=== PATIENT | female | born 1980 | race Caucasian/White ===

== ENCOUNTER 2016-11-08 16:39 | Emergency (ER) | payer BC ==
[2016-11-08] MEDS ORDERED: OXYCODONE-ACETAMINOPHEN 5-325 MG TABLET PO ONE (19:10)
--- NOTE | 2016-11-08 19:13 | ER Document Report ---
ED Medical Screen (RME) - General Chief Complaint: Diarrhea Stated Complaint: FLU SYMPTOMS Mode of Arrival: Ambulatory Information source: Patient TRAVEL OUTSIDE OF THE [place] IN LAST 30 DAYS: No - HPI Onset: This morning Onset/Duration: Sudden Quality of pain: Cramping Severity: Moderate Associated Symptoms: Diarrhea - x 10 or more Exacerbated by: Denies Relieved by: Denies, Other - no better w/ imodium, pepto - Related Data Smoking: Non-smoker Frequency of alcohol use: None Drug Abuse: None Allergies/Adverse Reactions: codeine Allergy (Mild, Verified 11/08/16 17:16) Pruritis Past Medical History - General Information source: Patient - Social History Cigarette use (# per day): No Chew tobacco use (# tins/day): No Frequency of alcohol use: None Drug Abuse: None Lives with: Spouse/Significant other Family history: Reviewed & Not Pertinent - Past Medical History Cardiac Medical History: Reports: None Pulmonary Medical History: Reports: None Endocrine Medical History: Reports: None Renal/ Medical History: Reports: None. Denies: Hx Peritoneal Dialysis GI Medical History: Reports: Hx Irritable Bowel Past Surgical History: Reports: Hx Section - 2 months ago - Immunizations Hx Diphtheria, Pertussis, Tetanus Vaccination: Yes Review of Systems - Review of Systems Constitutional: Chills EENT: No symptoms reported Cardiovascular: No symptoms reported Respiratory: No symptoms reported Gastrointestinal: See HPI Genitourinary: No symptoms reported Female Genitourinary: No symptoms reported. denies: Physical Exam - Vital signs Vitals: Temp Pulse Resp BP Pulse Ox 99.7 F 114 H 20 129/58 H 99 11/08/16 17:19 11/08/16 17:19 11/08/16 17:19 11/08/16 17:19 11/08/16 17:19 Interpretation: Tachycardic. No: Hypotensive, Tachypneic, Febrile Course - Vital Signs Vital signs: Temp Pulse Resp BP Pulse Ox 99.7 F 114 H 20 129/58 H 99 11/08/16 17:19 11/08/16 17:19 11/08/16 17:19 11/08/16 17:19 11/08/16 17:19
[2016-11-08 19:48] LABS: HEMATOCRIT 39.5 % (36.0-47.0); HEMOGLOBIN 13.6 g/dL (12.0-15.5); HGB HCT DIFFERENCE 1.3; MEAN CORPUSCULAR HGB CONC 34.4 g/dL (32.0-36.0); MEAN CORPUSCULAR VOLUME 90 fl (80-97); RED BLOOD COUNT 4.38 10^6/uL (3.72-5.28); RED CELL DISTRIBUTION WIDTH 12.7 % (11.5-14.0); WHITE BLOOD COUNT 10.2 10^3/uL (4.0-10.5)
[2016-11-08 19:54] LABS: APPEARANCE,URINE CLEAR; BILIRUBIN,URINE NEGATIVE (NEGATIVE); GLUCOSE, URINE NEGATIVE (NEGATIVE); KETONES,URINE 20 mg/dL (NEGATIVE); LEUKOCYTE ESTERASE,URINE TRACE (NEGATIVE); NITRITE,URINE NEGATIVE (NEGATIVE); PROTEIN,URINE NEGATIVE (NEGATIVE); URINE SPECIFIC GRAVITY 1.016; UROBILINOGEN,URINE NEGATIVE mg/dL (<2.0)
[2016-11-08 20:06] LABS: ALANINE AMINOTRANSFERASE 26 U/L (9-52); ALBUMIN 4.5 g/dL (3.5-5.0); ALKALINE PHOSPHATASE 70 U/L (38-126); ANION GAP 16 (5-19); ASPARTATE AMINO TRANSFERASE 26 U/L (14-36); BILIRUBIN,DIRECT 0.2 mg/dL (0.0-0.4); BILIRUBIN,TOTAL 0.4 mg/dL (0.2-1.3); BLOOD UREA NITROGEN 12 mg/dL (7-20); CALCIUM 9.6 mg/dL (8.4-10.2); CARBON DIOXIDE 24 mmol/L (22-30); CHLORIDE 102 mmol/L (98-107); GLUCOSE 96 mg/dL (75-110); POTASSIUM 4.5 mmol/L (3.6-5.0); SODIUM 142.2 mmol/L (137-145); TOTAL PROTEIN 7.9 g/dL (6.3-8.2)
[2016-11-08 20:15] LABS: BASOPHILS % (MANUAL) 0 % (0-2); EOSINOPHILS % (MANUAL) 0 % (0-6); LYMPHOCYTES % (MANUAL) 5 % (13-45); TOTAL CELLS COUNTED 100
[2016-11-08 20:16] LABS: TOXIC GRANULATION SLIGHT
[2016-11-08] MEDS ORDERED: FAMOTIDINE INJ/PF 20 MG/2 ML SDV IV ONE (20:36)
[2016-11-08] MEDS ORDERED: NORMAL SALINE 1000 ML 1,000 ML IV PRN (20:36)
[2016-11-08] MEDS ORDERED: ONDANSETRON HCL INJ/PF 4 MG/2 ML SDV IV ONE (20:36)
--- NOTE | 2016-11-08 20:37 | ER Document Report ---
ED GI/ - General Chief Complaint: Diarrhea Stated Complaint: FLU SYMPTOMS Time seen by provider: 20:37 Mode of Arrival: Ambulatory Information source: Patient TRAVEL OUTSIDE OF THE [place] IN LAST 30 DAYS: No - HPI Patient complains to provider of: Abdominal pain, Diarrhea Onset: This morning Timing/Duration: Gradual, Persistent Quality of pain: Achy, Cramping Severity at maximum: Moderate Severity in ED: Moderate Pain Level: 3 Location: Other - Diffuse Associated symptoms: Chills, Diarrhea, Fever, Nausea Exacerbated by: Denies Relieved by: Denies Similar symptoms previously: No Recently seen / treated by doctor: No Notes: 11/09/16 01:10 Patient is a 36-year-old female presenting to the emergency room complaining of nausea, diarrhea, fever and chills, symptoms started this morning, she denies any dysuria or hematuria, no sick contacts, no vomiting, she reports diffuse crampy abdominal pain - Related Data Allergies/Adverse Reactions: codeine Allergy (Mild, Verified 11/08/16 17:16) Pruritis Past Medical History - General Information source: Patient - Social History Smoking Status: Never Smoker Cigarette use (# per day): No Chew tobacco use (# tins/day): No Frequency of alcohol use: None Drug Abuse: None Lives with: Spouse/Significant other Family History: Other - GB Patient has suicidal ideation: No Patient has homicidal ideation: No - Past Medical History Cardiac Medical History: Reports: None Pulmonary Medical History: Reports: None Endocrine Medical History: Reports: None Renal/ Medical History: Reports: None. Denies: Hx Peritoneal Dialysis GI Medical History: Reports: Hx Irritable Bowel Past Surgical History: Reports: Hx Section - 2 months ago - Immunizations Hx Diphtheria, Pertussis, Tetanus Vaccination: Yes Review of Systems - Review of Systems Constitutional: See HPI EENT: No symptoms reported Cardiovascular: No symptoms reported Respiratory: No symptoms reported Gastrointestinal: See HPI Genitourinary: No symptoms reported Female Genitourinary: No symptoms reported Musculoskeletal: No symptoms reported Skin: No symptoms reported Hematologic/Lymphatic: No symptoms reported Neurological/Psychological: No symptoms reported -: Yes All other systems reviewed and negative Physical Exam - Vital signs Vitals: Temp Pulse Resp BP Pulse Ox 99.7 F 114 H 20 129/58 H 99 11/08/16 17:19 11/08/16 17:19 11/08/16 17:19 11/08/16 17:19 11/08/16 17:19 Interpretation: Tachycardic - General General appearance: Appears well, Alert - HEENT Head: Normocephalic, Atraumatic Eyes: Normal Pupils: PERRL - Respiratory Respiratory status: No respiratory distress Chest status: Nontender Breath sounds: Normal Chest palpation: Normal - Cardiovascular Rhythm: Regular Heart sounds: Normal auscultation Murmur: No - Abdominal Inspection: Normal Distension: No distension Bowel sounds: Normal Tenderness: Tender - Mild diffuse Organomegaly: No organomegaly - Back Back: Normal, Nontender - Extremities General upper extremity: Normal inspection, Nontender, Normal color, Normal ROM , Normal temperature General lower extremity: Normal inspection, Nontender, Normal color, Normal ROM , Normal temperature, Normal weight bearing. No: Alley's sign - Neurological Neuro grossly intact: Yes Cognition: Normal Orientation: AAOx4 Floyd Coma Scale Eye Opening: Spontaneous [place] Coma Scale Verbal: Oriented Floyd Coma Scale Motor: Obeys Commands Floyd Coma Scale Total: 15 Speech: Normal Motor strength normal: LUE, RUE, LLE, RLE Sensory: Normal - Psychological Associated symptoms: Normal affect, Normal mood - Skin Skin Temperature: Warm Skin Moisture: Dry Skin Color: Normal Course - Re-evaluation Re-evalutation: 11/09/16 00:19 Patient resting comfortably, reports feeling much better and ready to go home, lab and imaging findings were discussed with patient at bedside which are relatively unremarkable, patient was discharged with a Zofran dose pack and instructions for follow-up, advised to return if symptoms worsen, patient acknowledges understanding and agreement with this plan - Vital Signs Vital signs: Temp Pulse Resp BP Pulse Ox 98 F 101 H 16 101/60 98 11/08/16 23:22 11/08/16 23:22 11/08/16 23:22 11/08/16 23:22 11/08/16 23:22 - Laboratory Result Diagrams: 11/08/16 19:20 11/08/16 19:20 Laboratory results interpreted by me: 11/08/16 11/08/16 17:20 19:20 Seg Neuts % (Manual) 90 H Lymphocytes % (Manual) 5 L Abs Neuts (Manual) 9.2 H Urine Ketones 20 H Ur Leukocyte Esterase TRACE H Urine Ascorbic Acid 20 H - Diagnostic Test Radiology reviewed: Image reviewed, Reports reviewed Discharge - Discharge Clinical Impression: Nausea and vomiting Qualifiers: Vomiting type: unspecified Vomiting Intractability: non-intractable Qualified Code(s): R11.2 - Nausea with vomiting, unspecified Condition: Stable Disposition: HOME, SELF-CARE Instructions: Antinausea Medication ([facility]), Vomiting ([facility]), Intravenous (IV) Fluids ([facility]) Additional Instructions: Follow up with your primary care provider in one to 2 days. Return to the emergency room immediately if symptoms worsen or any additional concerns. Forms: Return to Work Referrals: ONELIA MANZANO FNP [Primary Care Provider] - Follow up as needed
[2016-11-09] MEDS ORDERED: ONDANSETRON ODT 4 MG TAB (6 TAB/DSPK) PO PRN (00:19)
[2016-11-09] MEDS ORDERED: HYDROCODONE/ACETAMINOPHEN 5-325 MG 6 TAB/DSPK PO PRN (00:19)
[2016-11-09 01:29] VITALS: BP 122/89
== END 2016-11-09 00:25 | disposition home or self-care (01) ==
LOC: ER 16:39
DX: R11.2 Nausea with vomiting, unspecified (principal); R19.7 Diarrhea, unspecified; R50.9 Fever, unspecified; R10.84 Generalized abdominal pain; Z88.5 Allergy status to narcotic agent; R00.0 Tachycardia, unspecified
CPT/HCPCS: 99284; 96361; 96374; 96375; 36415; 85025; 80053; 81001; 74022; 74177; J2405; J7030; S0028

== ENCOUNTER 2019-05-04 22:51 | Emergency (ER) | payer BC ==
[2019-05-04 23:11] VITALS: BP 109/73
--- NOTE | 2019-05-05 | ER Document Report ---
ED Medical Screen (RME) - General Chief Complaint: Pain All Over Stated Complaint: BODY ACHES,WEAKENESS,HEAVINESS IN LEGS Time Seen by Provider: 05/04/19 23:54 Primary Care Provider: ONELIA MANZANO FNP [Primary Care Provider] - Follow up as needed Notes: Patient is a 39-year-old female presents to the emergency department for multiple complaints. Patient voices she "just does not feel right." States she started with generalized heaviness in both of her legs. She denies any calf pain. Now states she just feels very jittery. States she feels as though she is breathing fast. Denies any history of anxiety or depression. Patient just keeps voicing over and over again "I know there is something wrong." GENERAL: Alert, interacts well. Intermittently shaking bilateral upper extremities. Stops on command. HEART: Tachycardic rate and rhythm. No murmur ABDOMEN: Soft, non-tender. Non-distended. Bowel sounds present in all 4 quadrants. I have greeted and performed a rapid initial assessment of this patient. A comprehensive ED assessment and evaluation of the patient, analysis of test results and completion of the medical decision making process will be conducted by additional ED providers. I have specifically instructed the patient or family members with the patient to immediately return to any nursing staff should anything change in the patient's condition or with their chief complaint. This medical record was dictated with voice recognizing software. There may be grammatical, syntax errors that are unintended. TRAVEL OUTSIDE OF THE [place] IN LAST 30 DAYS: No - Related Data Allergies/Adverse Reactions: codeine Allergy (Mild, Verified 05/04/19 23:58) Pruritis erythromycin base Allergy (Verified 05/04/19 23:58) Past Medical History - Social History Family history: Reviewed & Not Pertinent Renal/ Medical History: Denies: Hx Peritoneal Dialysis GI Medical History: Reports: Hx Irritable Bowel Past Surgical History: Reports: Hx Section - 2 months ago, Hx Cho lecystectomy - Immunizations Hx Diphtheria, Pertussis, Tetanus Vaccination: Yes Physical Exam - Vital signs Vitals: Temp Pulse Resp BP Pulse Ox 98.7 F 104 H 16 109/73 100 05/04/19 23:10 05/04/19 23:10 05/04/19 23:10 05/04/19 23:10 05/04/19 23:10 Course - Vital Signs Vital signs: Temp Pulse Resp BP Pulse Ox 98.7 F 104 H 16 109/73 100 05/04/19 23:10 05/04/19 23:10 05/04/19 23:10 05/04/19 23:10 05/04/19 23:10 Doctor's Discharge - Discharge Referrals: ONELIA MANZANO FNP [Primary Care Provider] - Follow up as needed
[2019-05-05 00:34] LABS: APPEARANCE,URINE CLEAR; BILIRUBIN,URINE NEGATIVE (NEGATIVE); COLOR,URINE STRAW; GLUCOSE, URINE NEGATIVE (NEGATIVE); KETONES,URINE NEGATIVE (NEGATIVE); LEUKOCYTE ESTERASE,URINE TRACE (NEGATIVE); NITRITE,URINE NEGATIVE (NEGATIVE); PROTEIN,URINE NEGATIVE (NEGATIVE); URINE SPECIFIC GRAVITY 1.005; UROBILINOGEN,URINE NEGATIVE mg/dL (<2.0)
[2019-05-05 00:40] LABS: ABSOLUTE LYMPHOCYTES (AUTO) 1.7 10^3/uL (0.5-4.7); ABSOLUTE NEUT (AUTO) 7.4 10^3/uL (1.7-8.2); BASOPHILS % (AUTO) 0.3 % (0-2); EOSINOPHILS % (AUTO) 0.2 % (0-6); HEMATOCRIT 37.6 % (36.0-47.0); LYMPHOCYTES % (AUTO) 16.9 % (13-45); MEAN CORPUSCULAR HGB CONC 34.5 g/dL (32.0-36.0); MEAN CORPUSCULAR VOLUME 93 fl (80-97); MONOCYTES % (AUTO) 9.5 % (3-13); PLATELET COUNT 207 10^3/uL (150-450); RED BLOOD COUNT 4.06 10^6/uL (3.72-5.28); RED CELL DISTRIBUTION WIDTH 12.3 % (11.5-14.0); SEGMENTED NEUTROPHILS % (AUTO) 73.1 % (42-78); TOTAL CELLS COUNTED % (AUTO) 100 %; WHITE BLOOD COUNT 10.1 10^3/uL (4.0-10.5)
[2019-05-05 00:49] LABS: ALBUMIN 4.7 g/dL (3.5-5.0); ALKALINE PHOSPHATASE 61 U/L (38-126); ANION GAP 13 (5-19); ASPARTATE AMINO TRANSFERASE 22 U/L (14-36); BILIRUBIN,DIRECT 0.2 mg/dL (0.0-0.4); BILIRUBIN,TOTAL 0.5 mg/dL (0.2-1.3); BLOOD UREA NITROGEN 15 mg/dL (7-20); CALCIUM 9.7 mg/dL (8.4-10.2); CARBON DIOXIDE 26 mmol/L (22-30); CHLORIDE 101 mmol/L (98-107); GLUCOSE 106 mg/dL (75-110); POTASSIUM 3.9 mmol/L (3.6-5.0); TOTAL PROTEIN 8.1 g/dL (6.3-8.2)
--- NOTE | 2019-05-05 02:19 | ER Document Report ---
ED General - General Chief Complaint: Pain All Over Stated Complaint: BODY ACHES,WEAKENESS,HEAVINESS IN LEGS Time Seen by Provider: 05/04/19 23:54 Primary Care Provider: ONELIA MANZANO FNP [Primary Care Provider] - Follow up as needed Notes: Patient is a 39-year-old female that comes to the emergency department for complaints of generally not feeling right for the past several days. She states it started with cramps, mainly in the left leg, it seemed to be in a calfs at first but now on the thighs, she states she also got extremely shaky and jittery earlier today, she states she did go to her primary care who ran labs and she has the initial results from these with her on her phone. She denies dizziness, chest pain, she states she felt slightly short of breath earlier but not now (she states that she got really anxious earlier and she started breathing rapidly but she did not actually feel like she could not catch her breath). She denies dyspnea on exertion, fever/chills, nausea/vomiting, or swelling the legs. She is not a smoker, she denies hormone use, she denies daily medications. She denies recreational drugs. Has medical history of x2, cholecystectomy, IBS. TRAVEL OUTSIDE OF THE [place] IN LAST 30 DAYS: No - Related Data Allergies/Adverse Reactions: codeine Allergy (Mild, Verified 05/04/19 23:58) Pruritis erythromycin base Allergy (Verified 05/04/19 23:58) Past Medical History - General Information source: Patient - Social History Smoking Status: Never Smoker Frequency of alcohol use: None Drug Abuse: None Lives with: Family Family History: Reviewed & Not Pertinent, Other - GB Patient has suicidal ideation: No Patient has homicidal ideation: No Renal/ Medical History: Denies: Hx Peritoneal Dialysis GI Medical History: Reports: Hx Irritable Bowel Past Surgical History: Reports: Hx Section - 2 months ago, Hx Cholecystectomy - Immunizations Hx Diphtheria, Pertussis, Tetanus Vaccination: Yes Review of Systems - Review of Systems Constitutional: See HPI EENT: No symptoms reported Cardiovascular: See HPI Respiratory: No symptoms reported Gastrointestinal: No symptoms reported Genitourinary: No symptoms reported Female Genitourinary: No symptoms reported Musculoskeletal: See HPI Skin: No symptoms reported Hematologic/Lymphatic: No symptoms reported Neurological/Psychological: No symptoms reported Physical Exam - Vital signs Vitals: Temp Pulse Resp BP Pulse Ox 98.7 F 104 H 16 109/73 100 05/04/19 23:10 05/04/19 23:10 05/04/19 23:10 05/04/19 23:10 05/04/19 23:10 Course - Re-evaluation Re-evalutation: Patient already had a TSH performed by her primary care and this was in normal range, she also had an ESR performed and this was in normal ranges well. CBC unremarkable, chemistry unremarkable, urinalysis unremarkable, test negative. Patient is mildly tachycardic on my exam, I do not appreciate any edema mainly in the left leg or thigh where she states she is having the cramping sensation. I added an EKG from triage work-up but this was unremarkable. D-dimer is negative. Magnesium normal. On reevaluation patient appears to have calmed down and she is no longer tachycardic. Between the current work-up and the work-up with primary care, patient's evaluation, and her reported symptoms, I have very low suspicion of acute etiology including blood clot, infection, or any emergent etiology otherwise. I did discuss results with patient, she is very grateful, states she is ready to be discharged, states she has close follow-up with primary care. Discussed return precautions. Patient states understanding and agreement. - Vital Signs Vital signs: Temp Pulse Resp BP Pulse Ox 98.7 F 104 H 16 109/73 100 05/04/19 23:10 05/04/19 23:10 05/04/19 23:10 05/04/19 23:10 05/04/19 23:10 - Laboratory Result Diagrams: 05/05/19 00:10 05/05/19 00:10 Laboratory results interpreted by me: 05/05/19 00:10 Urine Blood SMALL H Ur Leukocyte Esterase TRACE H Urine Ascorbic Acid 20 H - EKG Interpretation by Me Additional EKG results interpreted by me: EKG shows sinus rhythm at a rate of 94, QTC of 431, MI interval of 124. Normal axis. No T wave inversions or ST segment changes in consecutive leads. Computer reads as normal. Discharge - Discharge Clinical Impression: Shakiness, Generalized weakness Lower extremity pain Qualifiers: Laterality: bilateral Qualified Code(s): M79.604 - Pain in right leg Condition: Stable Disposition: HOME, SELF-CARE Additional Instructions: Your evaluation including EKG, clot testing, general chemistries, and complete blood counts do not show any concerning findings. Your evaluation is reassuring. Symptoms most likely will resolve with time. Follow-up with [facility] for additional evaluation management. Return for any concerning symptoms including swelling of one or both of the legs, difficulty breathing, passing out, or any other concerning symptoms. Referrals: ONELIA MANZANO FNP [Primary Care Provider] - Follow up as needed
--- NOTE | 2019-05-05 08:57 | EKG REPORT ---
SEVERITY:- NORMAL ECG - SINUS RHYTHM : Confirmed by: Ila Curry 05-May-2019 08:55:57
== END 2019-05-05 03:55 | disposition home or self-care (01) ==
LOC: ER 22:51
DX: R53.1 Weakness (principal); M79.10 Myalgia, unspecified site; M79.604 Pain in right leg; R00.0 Tachycardia, unspecified; Z88.3 Allergy status to other anti-infective agents; Z88.6 Allergy status to analgesic agent; Z90.49 Acquired absence of other specified parts of digestive tract
CPT/HCPCS: 36415; 80053; 81001; 81025; 83735; 85025; 85379; 93005; 93010; 99283

== ENCOUNTER 2020-07-12 12:34 | Observation (INO) | payer BC ==
--- NOTE | 2020-07-12 13:10 | ER Document Report ---
ED Medical Screen (RME) - General Chief Complaint: Pelvic Pain Stated Complaint: PELVIC PAIN Time Seen by Provider: 07/12/20 13:04 Primary Care Provider: ONELIA MANZANO FNP [Primary Care Provider] - Follow up as needed Mode of Arrival: Ambulatory Information source: Patient Notes: 40-year-old female presented to ED for complaint of pelvic pain for close to 2 weeks. She states she thought at first it was PMS and then she thought she was getting ready to have her. But she is still not started her menstrual cycle. She states last menstrual cycle was May 31. She states she is taken home is in some of them are inconclusive and some of her negative and some are positive so she does not know what it is. She states she did have intercourse on 14 June and the condom broke and then she took a Plan B 6 hours later so she did not this was why her menstrual cycle was confused. Patient is alert oriented respirations regular nonlabored speaking in full sentences. She states the pelvic pain is worse on her left but she does sometimes have some on the right as well. She states she started with nausea last night no vomiting no diarrhea. Patient states she has IBS so her stomach hurts weird anyway I have greeted and performed a rapid initial assessment of this patient. A comprehensive ED assessment and evaluation of the patient, analysis of test results and completion of medical decision making process will be conducted by an additional ED providers. TRAVEL OUTSIDE OF THE [place] IN LAST 30 DAYS: No - Related Data Allergies/Adverse Reactions: codeine Allergy (Mild, Verified 05/04/19 23:58) Pruritis erythromycin base Allergy (Verified 05/04/19 23:58) Past Medical History - Social History Family history: Reviewed & Not Pertinent Renal/ Medical History: Denies: Hx Peritoneal Dialysis GI Medical History: Reports: Hx Irritable Bowel Past Surgical History: Reports: Hx Section - 2 months ago, Hx Cholecys tectomy - Immunizations Hx Diphtheria, Pertussis, Tetanus Vaccination: Yes Physical Exam - Vital signs Vitals: Temp Pulse Resp BP Pulse Ox 98.3 F 124 H 16 116/74 97 07/12/20 12:38 07/12/20 12:38 07/12/20 12:38 07/12/20 12:38 07/12/20 12:38 Course - Vital Signs Vital signs: Temp Pulse Resp BP Pulse Ox 98.3 F 124 H 16 116/74 97 07/12/20 12:38 07/12/20 12:38 07/12/20 12:38 07/12/20 12:38 07/12/20 12:38 Doctor's Discharge - Discharge Referrals: ONELIA MANZANO FNP [Primary Care Provider] - Follow up as needed
[2020-07-12 13:57] LABS: ABSOLUTE LYMPHOCYTES (AUTO) 1.2 10^3/uL (0.5-4.7); ABSOLUTE NEUT (AUTO) 6.9 10^3/uL (1.7-8.2); BASOPHILS % (AUTO) 0.1 % (0-2); HEMATOCRIT 36.8 % (36.0-47.0); HEMOGLOBIN 12.6 g/dL (12.0-15.5); MEAN CORPUSCULAR HEMOGLOBIN 31.3 pg (27.0-33.4); MEAN CORPUSCULAR HGB CONC 34.3 g/dL (32.0-36.0); MEAN CORPUSCULAR VOLUME 91 fl (80-97); MONOCYTES % (AUTO) 11.2 % (3-13); PLATELET COUNT 226 10^3/uL (150-450); RED BLOOD COUNT 4.03 10^6/uL (3.72-5.28); RED CELL DISTRIBUTION WIDTH 12.3 % (11.5-14.0); SEGMENTED NEUTROPHILS % (AUTO) 75.7 % (42-78); TOTAL CELLS COUNTED % (AUTO) 100 %; WHITE BLOOD COUNT 9.1 10^3/uL (4.0-10.5)
[2020-07-12 14:14] LABS: ALBUMIN 4.7 g/dL (3.5-5.0); ALKALINE PHOSPHATASE 63 U/L (38-126); ANION GAP 10 (5-19); ASPARTATE AMINO TRANSFERASE 27 U/L (14-36); BILIRUBIN,TOTAL 0.4 mg/dL (0.2-1.3); BLOOD UREA NITROGEN 10 mg/dL (7-20); CALCIUM 10.1 mg/dL (8.4-10.2); CARBON DIOXIDE 24 mmol/L (22-30); CHLORIDE 102 mmol/L (98-107); GLUCOSE 96 mg/dL (75-110); POTASSIUM 3.9 mmol/L (3.6-5.0); TOTAL PROTEIN 8.2 g/dL (6.3-8.2)
[2020-07-12 14:40] LABS: APPEARANCE,URINE CLEAR; BILIRUBIN,URINE NEGATIVE (NEGATIVE); COLOR,URINE STRAW; GLUCOSE, URINE NEGATIVE (NEGATIVE); KETONES,URINE TRACE mg/dL (NEGATIVE); LEUKOCYTE ESTERASE,URINE SMALL (NEGATIVE); NITRITE,URINE NEGATIVE (NEGATIVE); PROTEIN,URINE NEGATIVE (NEGATIVE); URINE SPECIFIC GRAVITY 1.005; UROBILINOGEN,URINE NEGATIVE mg/dL (<2.0)
[2020-07-12] MEDS ORDERED: NORMAL SALINE 1000 ML 1,000 ML IV ONE (15:04)
--- NOTE | 2020-07-12 15:09 | ER Document Report ---
ED GI/ - General Chief Complaint: Pelvic Pain Stated Complaint: PELVIC PAIN Time Seen by Provider: 07/12/20 13:04 Primary Care Provider: ONELIA MANZANO FNP [Primary Care Provider] - Follow up as needed Mode of Arrival: Ambulatory Notes: HPI: 40-year-old female that states around 2 weeks of some left pelvic pain. Nausea without vomiting. No fevers. No lightheadedness or dizziness. No vaginal bleeding. History of inflammatory bowel syndrome. Patient states she did miss her last menstrual period. However she states she is somewhat irregular. She states she did take a home test and is unsure if she saw 2 lines. This would be the second for the patient with an 8-year-old at home. ROS: See HPI All other review of systems reviewed and otherwise negative Reviewed vital signs and nursing note as charted by RN. PHYSICAL EXAM: CONSTITUTIONAL: Alert and oriented and responds appropriately to questions. Well-appearing; well-nourished HEAD: Normocephalic; atraumatic EYES: PERRL; Conjunctivae clear, sclerae non-icteric ENT: Normal nose; no rhinorrhea; moist mucous membranes; pharynx without lesions noted NECK: Supple without meningismus; non-tender; no cervical lymphadenopathy, no masses CARD: Tachycardic but regular; no murmurs; symmetric distal pulses RESP: Normal chest excursion without splinting or tachypnea; breath sounds clear and equal bilaterally ABD/GI: Normal bowel sounds; non-distended; soft, while talking with the patient the patient currently has no tenderness to palpation of the abdomen; no palpable organomegaly or masses BACK: The back appears normal and is non-tender to palpation EXT: Normal ROM in all joints; non-tender to palpation; no edema SKIN: No acute lesions noted NEURO: CN 2-12 intact; 5/5 bilateral upper and lower extremity strength with sensation intact to light touch PSYCH: The patient's mood and manner are appropriate. Grooming and personal hygiene are appropriate. TRAVEL OUTSIDE OF THE [place] IN LAST 30 DAYS: No - Related Data Allergies/Adverse Reactions: codeine Allergy (Mild, Verified 05/04/19 23:58) Pruritis erythromycin base Allergy (Verified 05/04/19 23:58) Past Medical History - General Information source: Patient - Social History Smoking Status: Unknown if Ever Smoked Family History: Reviewed & Not Pertinent, Other - GB Patient has homicidal ideation: No Renal/ Medical History: Denies: Hx Peritoneal Dialysis GI Medical History: Reports: Hx Irritable Bowel Past Surgical History: Reports: Hx Section - 2 months ago, Hx Cholecystectomy - Immunizations Hx Diphtheria, Pertussis, Tetanus Vaccination: Yes Physical Exam - Vital signs Vitals: Temp Pulse Resp BP Pulse Ox 98.3 F 124 H 16 116/74 97 07/12/20 12:38 07/12/20 12:38 07/12/20 12:38 07/12/20 12:38 07/12/20 12:38 Course - Re-evaluation Re-evalutation: Given the above history and physical examination, slightly tachycardic, basic labs including a quantitative hCG and a transvaginal ultrasound were ordered. Would like to evaluate for the possibility of an ectopic , ovarian pathology, diverticulitis, or urinary tract infection. 07/12/20 15:08 Labs initially as recorded including a quantitative hCG of 16,000. Ultrasound has been performed. Pending results. No change in exam. Fluids are infusing. 07/12/20 15:40 Ultrasound as recorded. It appears at the patient did not have a quantitative h CG back on the radiologist with the report. I did call and speak to Dr. Jiang with [facility]. She states she will be in to see the patient momentarily. Patient's heart rate has improved. 07/12/20 16:40 [facility] has seen and assessed the patient. She would like to keep the patient here on observation. Patient is comfortable with this plan. - Vital Signs Vital signs: Temp Pulse Resp BP Pulse Ox 98.3 F 124 H 16 116/74 97 07/12/20 12:38 07/12/20 12:38 07/12/20 12:38 07/12/20 12:38 07/12/20 12:38 - Laboratory Result Diagrams: 07/12/20 13:33 07/12/20 13:33 Laboratory results interpreted by me: 07/12/20 07/12/20 13:33 13:33 Sodium 136.0 L Beta HCG, Quant 12694.00 H Urine Ketones TRACE H Ur Leukocyte Esterase SMALL H Urine Ascorbic Acid 20 H Discharge - Discharge Clinical Impression: Early stage of , Left lower quadrant abdominal pain, Tachycardia Condition: Fair Disposition: ADMITTED OBSERVATION Admitting Provider: [facility] Unit Admitted: Telemetry Referrals: ONELIA MANZANO FNP [Primary Care Provider] - Follow up as needed
--- NOTE | 2020-07-12 15:35 | RADIOLOGY REPORT (SQ) ---
EXAM DESCRIPTION: U/S OB TRANSVAG W/DOPPLER IMAGES COMPLETED DATE/TIME: 07/12/2020 2:24 pm REASON FOR STUDY: Pelvic pain mostly on left lmp May 31 COMPARISON: None. TECHNIQUE: Transvaginal static and realtime grayscale images acquired of the pelvis. Additional stanley cted spectral and color Doppler images recorded. All images stored on PACs. CLINICAL AGE: 6 weeks 0 days bHCG: Not available. LIMITATIONS: None. FINDINGS: UTERUS: No masses. No anomalies. GESTATIONAL SAC: Abnormal shape. YOLK SAC: No. POLE: None present. RIGHT ADNEXA: Normal ovary with normal vascular flow. No adnexal free fluid. Corpus Luteum measuring 2.0 cm. LEFT ADNEXA: Normal ovary with normal vascular flow. No adnexal free fluid. No adnexal masses. FREE FLUID: None. OTHER: No other significant finding. IMPRESSION: POSSIBLE EARLY INTRAUTERINE . BHCG LEVEL NOT AVAILABLE FOR CORRELATION WITH US FINDINGS. CONSIDER F/U BHCG AND/OR ULTRASOUND FOR VERIFICATION AND TO EXCLUDE ECTOPIC . Trimester of : First trimester - 0 to 13 weeks. TECHNICAL DOCUMENTATION: JOB ID: [id number] 2010 [employer]- All Rights Reserved Reading location - IP/workstation name: [email or web address]
--- NOTE | 2020-07-12 16:50 | PDOC H&P ---
History of Present Illness Admission Date/PCP: VIRGINIE DELVALLE Patient complains of: left lower pelvic pain History of Present Illness: ELADIO CRAFT is a 40 year old female with a history of 1 previous C- section with her 8-year-old son, to the ER today with a complaint of a positive test and persistent left lower quadrant pain present for at least 2 days. She denies any vaginal bleeding. She indicates that she had one episode of unprotected intercourse where the condom broke and she did take Plan B afterwards this was approximately around June 14. She took test earlier today and indicated that one was inconclusive but that the other one was positive. She called urgent care with her symptoms and they told her to come to the ER in regards to her pelvic pain and positive test in order to rule out an ectopic. At interview she indicates that her pelvic pain is remaining pretty consistent and in this same spot on the left. Her beta hCG here at the ER is 16,000 and the ultrasound done with her ER work-up shows a very irregular shaped possible gestational sac within the uterus. The images were reviewed by me and I do not see any evidence of an ectopic in the adnexa where there is a cyst presumably on the left ovary. Patient has remained tachycardic in the ER and in the 120s consistently this is after 1 L of fluid. Was consulted to rule out ectopic and for possible admission secondary to the patient's tachycardia. Past Medical History 1 Male Delivery: : Low Cervical, Transverse Past Surgical History Past Surgical History: Reports: Section - 2 months ago, Cholecystectomy Social History Smoking Status: Unknown if Ever Smoked Family History Family History: Reviewed & Not Pertinent, Other - GB Parental Family History Reviewed: Yes Children Family History Reviewed: No Sibling(s) Family History Reviewed.: No Medication/Allergy Home Medications: Cetirizine HCl [Zyrtec 10 mg Tablet] mg PO 12/03/12 Dicyclomine HCl [Bentyl 10 Mg Capsule] mg PO 12/03/12 Hydrocodone Bit/Acetaminophen [Vicodin 5-500 mg Tablet] 1 - 2 tab PO ASDIR PRN #20 tablet 12/03/12 Ondansetron [Zofran Odt 4 mg Tablet] 4 mg PO 12/03/12 Promethazine HCl [Phenergan 25 mg Tablet] 25 - 50 mg PO ASDIR PRN #12 tablet 12/03/12 Norethindrone-E.estradiol-Iron [Microgestin Fe 1-20 Tablet] 1 each PO DAILY Ranitidine HCl [Acid Control] 150 mg PO BID 01/23/13 Hydromorphone HCl [Dilaudid 2 Mg Tablet] 2 mg PO Q4H PRN 01/24/13 Allergies/Adverse Reactions: codeine Allergy (Mild, Verified 05/04/19 23:58) Pruritis erythromycin base Allergy (Verified 05/04/19 23:58) Review of Systems Constitutional: PRESENT: as per HPI Physical Exam - Physical Exam Vital Signs: Temp Pulse Resp BP Pulse Ox 98.3 F 124 H 16 116/74 97 07/12/20 12:38 07/12/20 12:38 07/12/20 12:38 07/12/20 12:38 07/12/20 12:38 Intake & Output 07/11/20 07/12/20 07/13/20 06:59 06:59 06:59 Weight 53.1 kg General appearance: PRESENT: no acute distress, cooperative, well-developed GI/Abdominal exam: PRESENT: soft - No tenderness elicited upon exam, Result Laboratory Results: 07/12/20 13:33 07/12/20 13:33 07/12/20 07/12/20 07/12/20 13:33 13:33 13:33 WBC 9.1 RBC 4.03 Hgb 12.6 Hct 36.8 MCV 91 MCH 31.3 MCHC 34.3 RDW 12.3 Plt Count 226 Seg Neutrophils % 75.7 Sodium 136.0 L Potassium 3.9 Chloride 102 Carbon Dioxide 24 Anion Gap 10 BUN 10 Creatinine 0.60 Est GFR ( Amer) > 60 Glucose 96 Calcium 10.1 Total Bilirubin 0.4 AST 27 Alkaline Phosphatase 63 Total Protein 8.2 Albumin 4.7 Lipase 47.6 Urine Color STRAW Urine Appearance CLEAR Urine pH 6.0 Ur Specific [place] 1.005 Urine Protein NEGATIVE Urine Glucose (UA) NEGATIVE Urine Ketones TRACE H Urine Blood NEGATIVE Urine Nitrite NEGATIVE Ur Leukocyte Esterase SMALL H Urine WBC (Auto) 2 Urine RBC (Auto) 1 Impressions: Transvaginal US 07/12/20 13:06 IMPRESSION: POSSIBLE EARLY INTRAUTERINE . BHCG LEVEL NOT AVAILABLE FOR CORRELATION WITH US FINDINGS. CONSIDER F/U BHCG AND/OR ULTRASOUND FOR VERIFICATION AND TO EXCLUDE ECTOPIC . Trimester of : First trimester - 0 to 13 weeks. Assessment & Plan - Diagnosis (1) Qualifiers: Weeks of gestation: less than 8 weeks Qualified Code(s): Z3A.01 - Less than 8 weeks gestation of Is this a current diagnosis for this admission?: Yes (2) rule out ectopic Is this a current diagnosis for this admission?: Yes (3) Tachycardia Is this a current diagnosis for this admission?: Yes - Time Time Spent: 30 to 50 Minutes Critical Time spent with patient: 15-24 minutes Anticipated Discharge Disposition: Home, Self Care Anticipated Discharge Timeframe: within 48 hours - Inpatient Certification Based on my medical assessment, after consideration of the patient's comorbi dities, presenting symptoms, or acuity I expect that the services needed warrant INPATIENT care.: Yes I certify that my determination is in accordance with my understanding of Medicare's requirements for reasonable and necessary INPATIENT services [42 CFR 412.3e].: Yes Medical Necessity: Need Close Monitoring Due to Risk of Patient Decompensation - Plan Summary Plan Summary: We will admit the patient for observation and repeat her beta hCG tomorrow as well as the sonogram. I discussed this with the patient and her in detail regarding plan of care, I explained to them that I will repeat the labs and the sonogram tomorrow to see if there is any indication of progression for normal however if the patient were to clinically decline that a emergent surgery might be necessary. I discussed with them regarding the signs for clinical decline such as worsening tachycardia hypotension increasing pelvic pain, pelvic distention abdominal distention etc. that would indicate a ruptured ectopic. I discussed with him the possibility of doing a D&C as well as a possible partial salpingectomy if surgery were necessary they both voiced understanding of the possibility of these procedures. I explained to them that I must first rule out a normal which would be the objective of the observation status.
[2020-07-12] MEDS: RINGERS SOLUTION,LACTATED 1,000 ML IV PRN (17:16)
[2020-07-12] MEDS: IBUPROFEN 800 MG TABLET PO PRN (21:50)
[2020-07-13] MEDS: RINGERS SOLUTION,LACTATED 1,000 ML IV PRN ×2 (02:20→10:08)
[2020-07-13 09:35] LABS: APPEARANCE,URINE CLEAR; BILIRUBIN,URINE NEGATIVE (NEGATIVE); COLOR,URINE COLORLESS; GLUCOSE, URINE NEGATIVE (NEGATIVE); KETONES,URINE 20 mg/dL (NEGATIVE); LEUKOCYTE ESTERASE,URINE TRACE (NEGATIVE); NITRITE,URINE NEGATIVE (NEGATIVE); PROTEIN,URINE NEGATIVE (NEGATIVE); URINE SPECIFIC GRAVITY 1.004; UROBILINOGEN,URINE NEGATIVE mg/dL (<2.0)
[2020-07-13] MEDS: IBUPROFEN 800 MG TABLET PO PRN (10:07)
[2020-07-13 14:00] LABS: HEMATOCRIT 34.6 % (36.0-47.0); HEMOGLOBIN 11.8 g/dL (12.0-15.5); MEAN CORPUSCULAR HEMOGLOBIN 31.1 pg (27.0-33.4); MEAN CORPUSCULAR HGB CONC 34.1 g/dL (32.0-36.0); MEAN CORPUSCULAR VOLUME 91 fl (80-97); PLATELET COUNT 195 10^3/uL (150-450); RED CELL DISTRIBUTION WIDTH 12.6 % (11.5-14.0); WHITE BLOOD COUNT 6.8 10^3/uL (4.0-10.5)
--- NOTE | 2020-07-13 18:12 | PDOC DISCHARGE SUMMARY ---
Impression - Admit/DC Date/PCP Admission Date/Primary Care Provider: 07/12/20 16:52 VIRGINIE DELVALLE Discharge Date: 07/13/20 - Discharge Diagnosis (1) Is this a current diagnosis for this admission?: Yes (2) rule out ectopic Is this a current diagnosis for this admission?: Yes (3) Tachycardia Is this a current diagnosis for this admission?: Yes - Assessment Summary: 40-year-old -0-0-1 at approximately 5 weeks gestational age mated due to tachycardia and to rule out ectopic . Her initial ultrasound in the ER yesterday showed a enlarged gestational sac with no yolk sac and no pole. Her beta hCG was 16 400. Kept for observation and all the risk benefits and alternatives were explained include including possible surgical interventions needed. Day her beta hCG returned at 18 400, and her repeat ultrasound indicates a yolk sac within the a more round uniform gestational sac. The adnexa was carefully inspected and we seem to have a corpus luteal cyst approximately 3 cm on the right ovary. Patient's pain in the pelvis has rem ained low-grade and has been easily managed with simple the p.o. NSAIDs medicines. Tachycardia has resolved after aggressive hydration. I have explained to her and her in regards to the risks of again possible heterotopic which is very low on my differential list, Splane to them that this may be a normally forming or it still could be an an embryonic ever follow-up can be done outpatient as I am now more reassured that this is not an ectopic. I will repeat her beta hCG tomorrow as her hCG rise over the 24-hour period was approximately 12% which is low however not outside the realm of possibility for normal . Based on the hCG level tomorrow which will be done outpatient we will repeat her ultrasound later in the week or early next week. Strict pain fever and bleeding precautions were gone were reviewed with the patient and her return to the ER if there is any excessive bleeding. Or increase in pain - Additional Information Resuscitation Status: Full Code Discharge Diet: As Tolerated Discharge Activity: Activity As Tolerated, Pelvic Rest Referrals: ONELIA MANZANO FNP [Primary Care Provider] - Follow up as needed Home Medications: Ascorbic Acid [Vitamin C 500 mg Tablet] 500 mg PO DAILY 07/13/20 Benzonatate [Tessalon Perles 100 mg Capsule] 100 mg PO HSP PRN 07/13/20 Ergocalciferol (Vitamin D2) [Drisdol 50,000 Unit (1.25MG) Capsule] 50,000 unit PO MO@1000 07/13/20 Levocetirizine Dihydrochloride [Xyzal] 5 mg PO QHS 07/13/20 Montelukast Sodium [Singulair 10 mg Tablet] 10 mg PO QHS 07/13/20 Multivitamin [Tab-A-Pasquale (Multiple Vitamin) Tablet] 1 tab PO DAILY 07/13/20 Omeprazole 20 mg PO DAILYP PRN 07/13/20 History of Present Illiness History of Present Illness: ELADIO CRAFT is a 40 year old female with a history of 1 previous C- section with her 8-year-old son, to the ER today with a complaint of a positive test and persistent left lower quadrant pain present for at least 2 days. She denies any vaginal bleeding. She indicates that she had one episode of unprotected intercourse where the condom broke and she did take Plan B afterwards this was approximately around June 14. She took test earlier today and indicated that one was inconclusive but that the other one was positive. She called urgent care with her symptoms and they told her to come to the ER in regards to her pelvic pain and positive test in order to rule out an ectopic. At interview she indicates that her pelvic pain is remaining pretty consistent and in this same spot on the left. Her beta hCG here at the ER is 16,000 and the ultrasound done with her ER work-up shows a very irregular shaped possible gestational sac within the uterus. The images were reviewed by me and I do not see any evidence of an ectopic in the adnexa where there is a cyst presumably on the left ovary. Patient has remained tachycardic in the ER and in the 120s consistently this is after 1 L of fluid. Was consulted to rule out ectopic and for possible admission secondary to the patient's tachycardia. Physical Exam - Physical Exam Vital Signs: Temp Pulse Resp BP Pulse Ox 98.2 F 99 18 98/65 L 99 07/13/20 15:19 07/13/20 15:19 07/13/20 15:19 07/13/20 15:19 07/13/20 15:19 Intake & Output 12/05/20 12/06/20 12/07/20 06:59 06:59 06:59 Intake Total 1999 975 Balance 1999 Weight 50 kg Results Laboratory Results: WBC 6.8 10^3/uL (4.0-10.5) 07/13/20 13:05 RBC 3.80 10^6/uL (3.72-5.28) 07/13/20 13:05 Hgb 11.8 g/dL (12.0-15.5) L 07/13/20 13:05 Hct 34.6 % (36.0-47.0) L 07/13/20 13:05 MCV 91 fl (80-97) 07/13/20 13:05 MCH 31.1 pg (27.0-33.4) 07/13/20 13:05 MCHC 34.1 g/dL (32.0-36.0) 07/13/20 13:05 RDW 12.6 % (11.5-14.0) 07/13/20 13:05 Plt Count 195 10^3/uL (150-450) 07/13/20 13:05 Lymph % (Auto) 13.0 % (13-45) 07/12/20 13:33 [place] % (Auto) 11.2 % (3-13) 07/12/20 13:33 Eos % (Auto) 0.0 % (0-6) 07/12/20 13:33 Baso % (Auto) 0.1 % (0-2) 07/12/20 13:33 Absolute Neuts (auto) 6.9 10^3/uL (1.7-8.2) 07/12/20 13:33 Absolute Lymphs (auto) 1.2 10^3/uL (0.5-4.7) 07/12/20 13:33 Absolute Monos (auto) 1.0 10^3/uL (0.1-1.4) 07/12/20 13:33 Absolute Eos (auto) 0.0 10^3/uL (0.0-0.6) 07/12/20 13:33 Absolute Basos (auto) 0.0 10^3/uL (0.0-0.2) 07/12/20 13:33 Seg Neutrophils % 75.7 % (42-78) 07/12/20 13:33 Sodium 136.0 mmol/L (137-145) L 07/12/20 13:33 Potassium 3.9 mmol/L (3.6-5.0) 07/12/20 13:33 Chloride 102 mmol/L (98-107) 07/12/20 13:33 Carbon Dioxide 24 mmol/L (22-30) 07/12/20 13:33 Anion Gap 10 (5-19) 07/12/20 13:33 BUN 10 mg/dL (7-20) 07/12/20 13:33 Creatinine 0.60 mg/dL (0.52-1.25) 07/12/20 13:33 Est GFR ( Amer) > 60 (>60) 07/12/20 13:33 Est GFR (MDRD) Non-Af > 60 (>60) 07/12/20 13:33 Glucose 96 mg/dL (75-110) 07/12/20 13:33 Calcium 10.1 mg/dL (8.4-10.2) 07/12/20 13:33 Total Bilirubin 0.4 mg/dL (0.2-1.3) 07/12/20 13:33 Direct Bilirubin 0.0 mg/dL (0.0-0.4) 07/12/20 13:33 Neonat Total Bilirubin Not Reportable 07/12/20 13:33 Neonat Direct Bilirubin Not Reportable 07/12/20 13:33 Neonat Indirect Bili Not Reportable 07/12/20 13:33 AST 27 U/L (14-36) 07/12/20 13:33 ALT 23 U/L (<35) 07/12/20 13:33 Alkaline Phosphatase 63 U/L (38-126) 07/12/20 13:33 Total Protein 8.2 g/dL (6.3-8.2) 07/12/20 13:33 Albumin 4.7 g/dL (3.5-5.0) 07/12/20 13:33 Lipase 47.6 U/L (23-300) 07/12/20 13:33 Beta HCG, Quant 34816.00 mIU/mL (0.0-6.15) H 07/13/20 13:05 Total Beta HCG POSITIVE (NEGATIVE) 07/13/20 13:05 Urine Color COLORLESS 07/13/20 09:00 Urine Appearance CLEAR 07/13/20 09:00 Urine pH 8.0 (5.0-9.0) 07/13/20 09:[address] 1.004 07/13/20 09:00 Urine Protein NEGATIVE mg/dL (NEGATIVE) 07/13/20 09:00 Urine Glucose (UA) NEGATIVE mg/dL (NEGATIVE) 07/13/20 09:00 Urine Ketones 20 mg/dL (NEGATIVE) H 07/13/20 09:00 Urine Blood NEGATIVE (NEGATIVE) 07/13/20 09:00 Urine Nitrite NEGATIVE (NEGATIVE) 07/13/20 09:00 Urine Bilirubin NEGATIVE (NEGATIVE) 07/13/20 09:00 Urine Urobilinogen NEGATIVE mg/dL (<2.0) 07/13/20 09:00 Ur Leukocyte Esterase TRACE (NEGATIVE) H 07/13/20 09:00 Urine WBC (Auto) 0 /HPF 07/13/20 09:00 Urine RBC (Auto) 0 /HPF 07/13/20 09:00 Urine Bacteria (Auto) TRACE /HPF 07/13/20 09:00 Squamous Epi Cells Auto 1 /HPF 07/13/20 09:00 Urine Mucus (Auto) RARE /LPF 07/13/20 09:00 Urine Ascorbic Acid NEGATIVE (NEGATIVE) 07/13/20 09:00 Impressions: Transvaginal US 07/12/20 13:06 IMPRESSION: POSSIBLE EARLY INTRAUTERINE . BHCG LEVEL NOT AVAILABLE FOR CORRELATION WITH US FINDINGS. CONSIDER F/U BHCG AND/OR ULTRASOUND FOR VERIFICATION AND TO EXCLUDE ECTOPIC . Trimester of : First trimester - 0 to 13 weeks. Stroke Is this a Stroke Patient?: No Acute Heart Failure Is this a Heart Failure Patient?: No
[2020-07-13 18:57] VITALS: BP 109/58
--- NOTE | 2020-07-13 20:33 | RADIOLOGY REPORT (SQ) ---
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 TECHNIQUE: Multiple pearson scale and color Doppler images of the pelvis were obtained transvaginally. FINDINGS: The uterus measures 5.5 x 4.7 x 3.4 cm. A single gestational sac is seen within the uterus. The sac demonstrates a yolk sac and probable pole measuring up to 2 to 3 mm. The sac shape is within normal limits. Mean sac diameter is approximately 1.1 cm. No perigestational hemorrhage is seen. The cervix measures at least 2.3 cm in length. The right and left ovaries are normal in size and sonographic appearance. The right ovary measures 2.9 x 2.3 x 2.4 cm. The left ovary measures 2.0 x 2.1 x 1.1 cm. Normal arterial and venous waveforms were obtained from both ovaries. No free fluid is seen in the cul-de-sac. IMPRESSION: There is a single intrauterine gestational sac containing a yolk sac and likely a pole. This likely represents a normal early of less than six weeks. Obstetric follow up for routine care should be performed.
== END 2020-07-13 19:00 | disposition home or self-care (01) ==
LOC: ER 12:34 → EH 16:52 → 2N 20:25
PROVIDERS: ADMIT Obstetrics & Gynecology; ATTEND Obstetrics & Gynecology
DX: O99.411 Diseases of the circulatory system complicating pregnancy, first trimester (principal); R00.0 Tachycardia, unspecified; O26.891 Other specified pregnancy related conditions, first trimester; R10.32 Left lower quadrant pain; R10.2 Pelvic and perineal pain; Z3A.01 Less than 8 weeks gestation of pregnancy
CPT/HCPCS: 99285; 96360; 36415 ×2; 87086 ×2; 84702 ×2; 83690; 85025; 85027; 87088; 80053; 81001 ×2; 76817 ×2; 93976 ×2; G0378 ×3; J7030; J7120 ×2

== ENCOUNTER → 2020-07-14 | Outpatient (CLI) | payer BC ==
[2020-07-14 14:37] LABS: HEMATOCRIT 36.1 % (36.0-47.0); HEMOGLOBIN 12.7 g/dL (12.0-15.5); MEAN CORPUSCULAR HEMOGLOBIN 31.8 pg (27.0-33.4); MEAN CORPUSCULAR VOLUME 91 fl (80-97); PLATELET COUNT 219 10^3/uL (150-450); RED BLOOD COUNT 3.98 10^6/uL (3.72-5.28); RED CELL DISTRIBUTION WIDTH 12.5 % (11.5-14.0); WHITE BLOOD COUNT 7.6 10^3/uL (4.0-10.5)
== END ==
LOC: LAB 14:22
PROVIDERS: ATTEND Obstetrics & Gynecology
DX: R10.2 Pelvic and perineal pain (principal); R00.0 Tachycardia, unspecified
CPT/HCPCS: 36415; 84702; 84703; 85027